=== PATIENT | male | born 1935 | race Caucasian/White ===

== ENCOUNTER 2020-05-22 20:40 | Emergency (ER) | payer OTHER ==
[~2020-05-22] VITALS: Ht 180.3 cm; Wt 74.8 kg
[2020-05-23 00:03] LABS: Basophils # (auto) 0.1 10 ^3/uL (0-0.2); Basophils % (auto) 1.1 % (0.0-2.0); Eosinophils # (auto) 0.3 10 ^3/uL (0-0.8); Eosinophils % (auto) 5.7 % (0.0-7.0); Hematocrit 36.2 % (41.0-53.0); Hemoglobin 11.7 g/dL (13.5-17.5); Lymphocytes % (auto) 37.8 % (10.0-50.0); Mean Corpuscular Hemoglobin 29.3 pg (28.0-32.0); Mean Corpuscular Hgb Conc. 32.2 g/dL (32.0-36.0); Mean Corpuscular Volume 91.1 fL (80.0-100.0); Monocytes # (auto) 0.4 10 ^3/uL (0-1.3); Monocytes % (auto) 7.8 % (0.0-12.0); Neutrophils # (auto) 2.5 10 ^3/uL (1.6-8.6); Neutrophils % (auto) 47.6 % (37.0-80.0); Platelet Count (auto) 234 10^3/uL (140-450); Red Blood Cells 3.98 10^6/uL (4.5-5.90); Red Cell Distribution Width 16.4 % (11.8-14.3); White Blood Cell 5.2 10^3/uL (4.4-10.8)
[2020-05-23 00:23] LABS: Albumin 3.1 g/dL (3.4-5.0); BUN/Creatinine Ratio 11.8; Potassium 3.5 mmol/L (3.5-5.1)
[2020-05-23 00:24] LABS: Salicylate < 1.7 mg/dL (2.8-20.0)
[2020-05-23 00:25] LABS: Bilirubin, Total 0.3 mg/dL (0.2-1.0); Total Protein 6.9 g/dL (6.4-8.2)
[2020-05-23 00:26] LABS: Acetaminophen < 2.0 ug/mL (10-30)
[2020-05-23] MEDS ORDERED: THIAMINE INJ 100 MG in SODIUM CHLORIDE 0.9% 1,000 ML IV ONE (02:00)
[2020-05-23] MEDS ORDERED: THIAMINE 100mg/ml INJ (200mg/2ml VIAL) ONE (02:44)
[2020-05-23 14:11] LABS: Urine Bacteria FEW /hpf (None Seen); Urine Blood Negative /uL (Negative); Urine Specific Gravity 1.012 (1.001-1.035); Urine WBC 32 /hpf (0 - 3)
[2020-05-23 14:14] LABS: Amphetamine Screen, Urine NEGATIVE (NEGATIVE); Barbiturate Scree,Urine NEGATIVE (NEGATIVE); Benzodiazephine Screen, Urine NEGATIVE (NEGATIVE); Cannabinoid Screen, Urine NEGATIVE (NEGATIVE); Cocaine Screen, Urine NEGATIVE (NEGATIVE); Opiate Scree,Urine NEGATIVE (NEGATIVE); Phencyclidine Screen, Urine NEGATIVE (NEGATIVE)
[2020-05-24] MEDS ORDERED: SULFAMETHOX W/TRIMETH(800/160MG) DS TAB PO SCH (10:00)
[2020-05-24 18:11] VITALS: BP 139/62
== END 2020-05-24 18:50 | disposition short-term general hospital (02) ==
LOC: ER 20:40 → EDBD 20:40 → ER 05-24 18:50
DX: R45.851 Suicidal ideations (principal); F10.129 Alcohol abuse with intoxication, unspecified
CPT/HCPCS: 36415; 71046; 80053; 80307; 80320; 80329; 81001; 85025; 87426; 93005; 96365; 96366; 99285; J3411; J7030

== ENCOUNTER 2020-10-18 18:24 | Inpatient (IN) | payer OTHER, MEDICARE ==
[~2020-10-18] VITALS: Ht 175.3 cm; Wt 59.7 kg
[2020-10-18 19:59] LABS: Basophils # (auto) 0.1 10 ^3/uL (0-0.2); Basophils % (auto) 0.8 % (0.0-2.0); Eosinophils # (auto) 0 10 ^3/uL (0-0.8); Eosinophils % (auto) 0.1 % (0.0-7.0); Hematocrit 33.2 % (41.0-53.0); Lymphocytes # (auto) 0.8 10 ^3/uL (0.4-5.4); Lymphocytes % (auto) 11.8 % (10.0-50.0); Mean Corpuscular Hemoglobin 29.3 pg (28.0-32.0); Mean Corpuscular Hgb Conc. 33.2 g/dL (32.0-36.0); Mean Corpuscular Volume 88.2 fL (80.0-100.0); Monocytes # (auto) 0.4 10 ^3/uL (0-1.3); Monocytes % (auto) 5.5 % (0.0-12.0); Neutrophils # (auto) 5.6 10 ^3/uL (1.6-8.6); Neutrophils % (auto) 81.8 % (37.0-80.0); Platelet Count (auto) 242 10^3/uL (140-450); Red Blood Cells 3.76 10^6/uL (4.5-5.90); Red Cell Distribution Width 16.5 % (11.8-14.3); White Blood Cell 6.8 10^3/uL (4.4-10.8)
[2020-10-18 20:15] LABS: Albumin 2.4 g/dL (3.4-5.0); Amylase 63 U/L (25-115); Anion Gap 19 (5-15); Blood Urea Nitrogen 15 mg/dL (7-18); Carbon Dioxide 13 mmol/L (21-32); Chloride 109 mmol/L (98-107); Glucose 59 mg/dL (74-106); Lipase 95 U/L (73-393); Magnesium 1.9 mg/dL (1.6-2.6); Potassium 3.3 mmol/L (3.5-5.1); Sodium 141 mmol/L (136-145)
[2020-10-18 20:20] LABS: INR 1.15 (0.9-1.15); Partial Thromboplastin Time 43.2 sec (23.0-31.2)
[2020-10-18 20:21] LABS: Alanine Aminotransferase 7 U/L (16-61); Alkaline Phosphatase 78 U/L (45-117); Aspartate Aminotransferase 15 U/L (15-37); BUN/Creatinine Ratio 11.6; Bilirubin, Total 0.5 mg/dL (0.2-1.0); GFR African American 68 mL/min; GFR Non-African American 56 mL/min; Total Protein 6.6 g/dL (6.4-8.2)
[2020-10-18] MEDS ORDERED: DexAMETHasone SOD PHOS 10MG/1ML VIAL INJ IV ONE (20:30)
[2020-10-18] MEDS ORDERED: DOXYCYCLINE 100MG/250ML 250 ML IV ONE (22:15)
[2020-10-19 00:33] LABS: Urine Amorphous Crystal MOD /hpf (None Seen); Urine Bacteria MANY /hpf (None Seen); Urine Blood TRACE /uL (Negative); Urine Hyaline Cast FEW /lpf (0 - 2); Urine Mucus FEW (None Seen); Urine Specific Gravity 1.016 (1.001-1.035); Urine WBC 41 /hpf (0 - 3)
[2020-10-19] MEDS ORDERED: ONDANSETRON HCL 4 MG/2 ML VIAL IV PRN (00:45)
[2020-10-19] MEDS ORDERED: NITROGLYCERIN 0.4 MG SL TAB SL PRN (00:45)
[2020-10-19] MEDS ORDERED: POTASSIUM CHL 20 Meq TABLET PO ONE (00:45)
[2020-10-19] MEDS ORDERED: MORPHINE SULF INJ 2 MG/ML SYRINGE 1ML IV PRN (00:45)
[2020-10-19] MEDS ORDERED: TEMAZEPAM 15 MG CAP PO PRN (00:45)
[2020-10-19] MEDS ORDERED: ACETAMINOPHEN 325 MG TAB PO PRN (00:45)
[2020-10-19] MEDS ORDERED: ENOXAPARIN SOD 40 MG/0.4 ML SYRINGE SC SCH (10:00)
[2020-10-19] MEDS ORDERED: FAMOTIDINE 20 MG TAB PO SCH (10:00)
[2020-10-19] MEDS: CHOLECALCIFEROL (VITD3) 2,000 UNIT CAP PO SCH (10:18)
[2020-10-19] MEDS: ASCORBIC ACID 1,000 MG TAB PO SCH (10:18)
[2020-10-19] MEDS: ZINC SULFATE 220mg CAP or TAB PO SCH (10:18)
[2020-10-19] MEDS: FAMOTIDINE 20 MG TAB PO SCH ×2 (10:18→22:15)
[2020-10-19] MEDS: DOXYCYCLINE 100MG/250ML 250 ML IV SCH ×2 (10:18→22:15)
[2020-10-19] MEDS: DexAMETHasone SOD PHOS 10MG/1ML VIAL INJ IV SCH (10:18)
[2020-10-19] MEDS ORDERED: REMDESIVIR PER PHARMACY 0 ML IV SCH (15:00)
[2020-10-19] MEDS ORDERED: ENOXAPARIN SOD 30 MG/0.3 ML SYRINGE SC STA (17:14)
[2020-10-19] MEDS: ENOXAPARIN SOD 60 MG/0.6 ML SYRINGE SC SCH (22:15)
[2020-10-20] VITALS: BP 98/55
[2020-10-20 05:08] LABS: Basophils # (auto) 0 10 ^3/uL (0-0.2); Basophils % (auto) 0.4 % (0.0-2.0); Eosinophils # (auto) 0 10 ^3/uL (0-0.8); Hematocrit 30.5 % (41.0-53.0); Hemoglobin 10.4 g/dL (13.5-17.5); Lymphocytes # (auto) 0.9 10 ^3/uL (0.4-5.4); Lymphocytes % (auto) 12.3 % (10.0-50.0); Mean Corpuscular Hemoglobin 29.7 pg (28.0-32.0); Mean Corpuscular Volume 87.3 fL (80.0-100.0); Monocytes # (auto) 0.3 10 ^3/uL (0-1.3); Monocytes % (auto) 3.9 % (0.0-12.0); Neutrophils # (auto) 5.8 10 ^3/uL (1.6-8.6); Neutrophils % (auto) 83.4 % (37.0-80.0); Nucleated Red Blood Cells % 0.1 %; Platelet Count (auto) 221 10^3/uL (140-450); Red Blood Cells 3.49 10^6/uL (4.5-5.90); Red Cell Distribution Width 16.5 % (11.8-14.3); White Blood Cell 6.9 10^3/uL (4.4-10.8)
[2020-10-20 05:29] LABS: Albumin 2.2 g/dL (3.4-5.0); Calcium 8.1 mg/dL (8.5-10.1); Magnesium 1.8 mg/dL (1.6-2.6); Potassium 3.9 mmol/L (3.5-5.1)
[2020-10-20 05:38] LABS: BUN/Creatinine Ratio 11.5; Bilirubin, Total 0.4 mg/dL (0.2-1.0); CRP High Sensitivity 5.16 mg/dL (< 0.3)
[2020-10-20 08:00] VITALS: BP_SYST 127; BP_SYST 99; BP_DIAS 57; BP_DIAS 79
[2020-10-20] MEDS: DexAMETHasone SOD PHOS 10MG/1ML VIAL INJ IV SCH (10:57)
[2020-10-20] MEDS: ENOXAPARIN SOD 60 MG/0.6 ML SYRINGE SC SCH (10:57)
[2020-10-20] MEDS: ZINC SULFATE 220mg CAP or TAB PO SCH (10:58)
[2020-10-20] MEDS: ASCORBIC ACID 1,000 MG TAB PO SCH (10:58)
[2020-10-20] MEDS: CHOLECALCIFEROL (VITD3) 2,000 UNIT CAP PO SCH (10:58)
[2020-10-20] MEDS: DOXYCYCLINE 100MG/250ML 250 ML IV SCH ×2 (10:59→22:44)
[2020-10-20] MEDS: FAMOTIDINE 20 MG TAB PO SCH ×2 (10:59→22:44)
[2020-10-20] MEDS ORDERED: LEVOTHYROXINE SODIUM 100 MCG TAB PO ONE (11:00)
[2020-10-20] MEDS ORDERED: SODIUM CHLORIDE 0.9% 1,000 ML IV ONE (14:45)
[2020-10-20] MEDS ORDERED: REMDESIVIR 200 MG in NS 210ml LOADING DOSE ADULT IV ONE (15:00)
[2020-10-20 16:00] VITALS: BP 100/58
[2020-10-20] MEDS ORDERED: SODIUM CHLORIDE 0.9% 250 ML IV ONE (16:00)
[2020-10-20] MEDS: ERGOCALCIFEROL 50,000 UNIT(1.25MG) CAP PO SCH (17:08)
[2020-10-20] MEDS: ALBUTEROL SULF HFA 90MCG INH 200DOSE IN PRN (20:49)
[2020-10-20] MEDS: APIXABAN 5 MG TAB PO SCH (22:44)
[2020-10-21] VITALS (7 sets, daily range): BP systolic 100–112; BP diastolic 53–71
[2020-10-21 05:58] LABS: Hematocrit 26.5 % (41.0-53.0); Hemoglobin 9.1 g/dL (13.5-17.5)
[2020-10-21] MEDS: LEVOTHYROXINE SODIUM 100 MCG TAB PO SCH (06:17)
[2020-10-21 06:32] LABS: BUN/Creatinine Ratio 17.9; Calcium 7.7 mg/dL (8.5-10.1); Magnesium 1.6 mg/dL (1.6-2.6); Potassium 4.1 mmol/L (3.5-5.1)
[2020-10-21] MEDS: ALBUTEROL SULF HFA 90MCG INH 200DOSE IN PRN ×2 (07:50→19:11)
[2020-10-21] MEDS: ASCORBIC ACID 1,000 MG TAB PO SCH (10:19)
[2020-10-21] MEDS: DexAMETHasone SOD PHOS 10MG/1ML VIAL INJ IV SCH (10:19)
[2020-10-21] MEDS: ZINC SULFATE 220mg CAP or TAB PO SCH (10:19)
[2020-10-21] MEDS: CHOLECALCIFEROL (VITD3) 2,000 UNIT CAP PO SCH (10:20)
[2020-10-21] MEDS: FAMOTIDINE 20 MG TAB PO SCH (10:20)
[2020-10-21] MEDS: DOXYCYCLINE 100MG/250ML 250 ML IV SCH ×2 (10:20→21:10)
[2020-10-21] MEDS: APIXABAN 5 MG TAB PO SCH ×2 (10:22→21:10)
[2020-10-21] MEDS ORDERED: MAGNESIUM SULFATE 1GM/100ML 100 ML IV ONE (10:45)
[2020-10-21] MEDS ORDERED: LACTULOSE 20Gm/30ML SOLN PO PRN (11:00)
[2020-10-21] MEDS: REMDESIVIR 100mg 100 MG in SODIUM CHL 0.9% 230 ML IV SCH (16:24)
[2020-10-21] MEDS: DOCUSATE SOD 100 MG CAP PO SCH (21:10)
[2020-10-22] MEDS: LEVOTHYROXINE SODIUM 100 MCG TAB PO SCH (06:08)
[2020-10-22 08:00] VITALS: BP 104/55
[2020-10-22 08:07] LABS: Hematocrit 28.7 % (41.0-53.0); Hemoglobin 9.9 g/dL (13.5-17.5)
[2020-10-22 08:19] LABS: BUN/Creatinine Ratio 26.4; Calcium 7.7 mg/dL (8.5-10.1); Potassium 4.5 mmol/L (3.5-5.1)
[2020-10-22] MEDS: DexAMETHasone SOD PHOS 10MG/1ML VIAL INJ IV SCH (09:26)
[2020-10-22] MEDS: ZINC SULFATE 220mg CAP or TAB PO SCH (09:27)
[2020-10-22] MEDS: DOXYCYCLINE 100MG/250ML 250 ML IV SCH (09:27)
[2020-10-22] MEDS: CHOLECALCIFEROL (VITD3) 2,000 UNIT CAP PO SCH (09:28)
[2020-10-22] MEDS: FAMOTIDINE 20 MG TAB PO SCH (09:28)
[2020-10-22] MEDS: ASCORBIC ACID 1,000 MG TAB PO SCH (09:28)
[2020-10-22] MEDS: APIXABAN 5 MG TAB PO SCH ×2 (09:29→21:53)
[2020-10-22] MEDS: DOCUSATE SOD 100 MG CAP PO SCH ×2 (09:29→21:53)
[2020-10-22] MEDS ORDERED: MAGNESIUM SULFATE 1GM/100ML 100 ML IV ONE (12:00)
[2020-10-22] MEDS ORDERED: ZINC220T6 PO (12:02)
[2020-10-22] MEDS ORDERED: ASCO10003 PO (12:02)
[2020-10-22] MEDS ORDERED: ALBUAER3 IN (12:02)
[2020-10-22] MEDS ORDERED: DEX4T PO (12:02)
[2020-10-22] MEDS ORDERED: LEV100T PO (12:02)
[2020-10-22] MEDS ORDERED: PANT40TA2 PO (12:02)
[2020-10-22] MEDS ORDERED: DOXY-286 PO (12:02)
[2020-10-22] MEDS ORDERED: CHOL1CAP47 PO (12:02)
[2020-10-22] MEDS ORDERED: DOCU-94 PO (12:02)
[2020-10-22] MEDS ORDERED: APIX5TAB4 PO (12:02)
[2020-10-22] MEDS ORDERED: LEVO500T31 PO (12:08)
[2020-10-22] MEDS ORDERED: levoFLOXacin 500MG 100 ML IV ONE (12:15)
[2020-10-22] MEDS: REMDESIVIR 100mg 100 MG in SODIUM CHL 0.9% 230 ML IV SCH (15:54)
[2020-10-22 15:57] VITALS: BP 110/57
[2020-10-23] VITALS: BP 128/55
[2020-10-23 05:48] LABS: Basophils # (auto) 0 10 ^3/uL (0-0.2); Basophils % (auto) 0.2 % (0.0-2.0); Eosinophils # (auto) 0 10 ^3/uL (0-0.8); Hematocrit 31.8 % (41.0-53.0); Hemoglobin 10.9 g/dL (13.5-17.5); Lymphocytes # (auto) 1.4 10 ^3/uL (0.4-5.4); Lymphocytes % (auto) 27.8 % (10.0-50.0); Mean Corpuscular Hemoglobin 29.6 pg (28.0-32.0); Mean Corpuscular Hgb Conc. 34.4 g/dL (32.0-36.0); Mean Corpuscular Volume 85.9 fL (80.0-100.0); Monocytes # (auto) 0.5 10 ^3/uL (0-1.3); Monocytes % (auto) 9.5 % (0.0-12.0); Neutrophils # (auto) 3.1 10 ^3/uL (1.6-8.6); Neutrophils % (auto) 62.5 % (37.0-80.0); Nucleated Red Blood Cells % 0.2 %; Platelet Count (auto) 218 10^3/uL (140-450)
[2020-10-23 06:05] LABS: Potassium 4.4 mmol/L (3.5-5.1)
[2020-10-23 06:11] LABS: Albumin 1.9 g/dL (3.4-5.0); BUN/Creatinine Ratio 28.2; Bilirubin, Total 0.4 mg/dL (0.2-1.0); Calcium 7.7 mg/dL (8.5-10.1); Total Protein 5.4 g/dL (6.4-8.2)
[2020-10-23] MEDS: ALBUTEROL SULF HFA 90MCG INH 200DOSE IN PRN ×2 (06:38→18:52)
[2020-10-23] MEDS: LEVOTHYROXINE SODIUM 100 MCG TAB PO SCH (06:43)
[2020-10-23 08:00] VITALS: BP 93/51
[2020-10-23] MEDS: DexAMETHasone SOD PHOS 10MG/1ML VIAL INJ IV SCH (10:05)
[2020-10-23] MEDS: levoFLOXacin 500MG 100 ML IV SCH (10:06)
[2020-10-23] MEDS: FAMOTIDINE 20 MG TAB PO SCH (10:06)
[2020-10-23] MEDS: ZINC SULFATE 220mg CAP or TAB PO SCH (10:06)
[2020-10-23] MEDS: CHOLECALCIFEROL (VITD3) 2,000 UNIT CAP PO SCH (10:06)
[2020-10-23] MEDS: DOCUSATE SOD 100 MG CAP PO SCH ×2 (10:06→22:07)
[2020-10-23] MEDS: APIXABAN 5 MG TAB PO SCH ×2 (10:06→22:07)
[2020-10-23] MEDS: ASCORBIC ACID 1,000 MG TAB PO SCH (10:07)
[2020-10-23 16:00] VITALS: BP 91/54
[2020-10-23] MEDS: REMDESIVIR 100mg 100 MG in SODIUM CHL 0.9% 230 ML IV SCH (16:11)
[2020-10-24] VITALS: BP 104/64
[2020-10-24] MEDS: LEVOTHYROXINE SODIUM 100 MCG TAB PO SCH (06:32)
[2020-10-24 08:00] VITALS: BP 94/43
[2020-10-24] MEDS: CHOLECALCIFEROL (VITD3) 2,000 UNIT CAP PO SCH (10:00)
[2020-10-24] MEDS: DOCUSATE SOD 100 MG CAP PO SCH ×2 (10:11→21:35)
[2020-10-24] MEDS: APIXABAN 5 MG TAB PO SCH ×2 (10:11→21:35)
[2020-10-24] MEDS: ZINC SULFATE 220mg CAP or TAB PO SCH (10:11)
[2020-10-24] MEDS: DexAMETHasone SOD PHOS 10MG/1ML VIAL INJ IV SCH (10:11)
[2020-10-24] MEDS: levoFLOXacin 500MG 100 ML IV SCH (10:11)
[2020-10-24] MEDS: FAMOTIDINE 20 MG TAB PO SCH (10:12)
[2020-10-24] MEDS: ASCORBIC ACID 1,000 MG TAB PO SCH (10:13)
[2020-10-24] MEDS: REMDESIVIR 100mg 100 MG in SODIUM CHL 0.9% 230 ML IV SCH (14:21)
[2020-10-24 16:00] VITALS: BP 101/50
[2020-10-24] MEDS: LACTULOSE 20Gm/30ML SOLN PO SCH (18:00)
[2020-10-24] MEDS: ALBUTEROL SULF HFA 90MCG INH 200DOSE IN PRN (19:03)
[2020-10-25] VITALS: BP 98/53
[2020-10-25] MEDS: LEVOTHYROXINE SODIUM 100 MCG TAB PO SCH (06:41)
[2020-10-25] MEDS: ALBUTEROL SULF HFA 90MCG INH 200DOSE IN PRN ×2 (07:00→19:26)
[2020-10-25 07:47] LABS: Basophils # (auto) 0 10 ^3/uL (0-0.2); Basophils % (auto) 0.1 % (0.0-2.0); Eosinophils # (auto) 0 10 ^3/uL (0-0.8); Hematocrit 30.9 % (41.0-53.0); Hemoglobin 10.5 g/dL (13.5-17.5); Lymphocytes # (auto) 1.4 10 ^3/uL (0.4-5.4); Lymphocytes % (auto) 27.9 % (10.0-50.0); Mean Corpuscular Hemoglobin 29.2 pg (28.0-32.0); Monocytes # (auto) 0.4 10 ^3/uL (0-1.3); Monocytes % (auto) 8.7 % (0.0-12.0); Neutrophils # (auto) 3.1 10 ^3/uL (1.6-8.6); Neutrophils % (auto) 63.3 % (37.0-80.0); Nucleated Red Blood Cells % 0.2 %; Platelet Count (auto) 212 10^3/uL (140-450); Red Blood Cells 3.59 10^6/uL (4.5-5.90); Red Cell Distribution Width 17.3 % (11.8-14.3); White Blood Cell 4.9 10^3/uL (4.4-10.8)
[2020-10-25 08:00] VITALS: BP 92/54
[2020-10-25] MEDS: LACTULOSE 20Gm/30ML SOLN PO SCH ×2 (08:00→17:59)
[2020-10-25 08:20] LABS: Albumin 1.8 g/dL (3.4-5.0); Potassium 4.3 mmol/L (3.5-5.1)
[2020-10-25 08:26] LABS: Bilirubin, Total 0.4 mg/dL (0.2-1.0); Total Protein 4.9 g/dL (6.4-8.2)
[2020-10-25] MEDS: ASCORBIC ACID 1,000 MG TAB PO SCH (10:00)
[2020-10-25] MEDS: DexAMETHasone SOD PHOS 10MG/1ML VIAL INJ IV SCH (10:03)
[2020-10-25] MEDS: levoFLOXacin 500MG 100 ML IV SCH (10:03)
[2020-10-25] MEDS: ZINC SULFATE 220mg CAP or TAB PO SCH (10:03)
[2020-10-25] MEDS: CHOLECALCIFEROL (VITD3) 2,000 UNIT CAP PO SCH (10:04)
[2020-10-25] MEDS: FAMOTIDINE 20 MG TAB PO SCH (10:04)
[2020-10-25] MEDS: APIXABAN 5 MG TAB PO SCH ×2 (10:04→21:40)
[2020-10-25] MEDS: DOCUSATE SOD 100 MG CAP PO SCH ×2 (10:04→21:40)
[2020-10-25] MEDS ORDERED: APIX5TAB4 PO (13:37)
[2020-10-25] MEDS ORDERED: LEVO500T31 PO (13:37)
[2020-10-25 16:00] VITALS: BP 98/54
[2020-10-26] VITALS: BP 99/57
[2020-10-26] MEDS: LEVOTHYROXINE SODIUM 100 MCG TAB PO SCH (06:33)
[2020-10-26] MEDS: LACTULOSE 20Gm/30ML SOLN PO SCH ×2 (08:00→18:00)
[2020-10-26 08:11] VITALS: BP 102/55
[2020-10-26] MEDS: DexAMETHasone SOD PHOS 10MG/1ML VIAL INJ IV SCH (10:48)
[2020-10-26] MEDS: levoFLOXacin 500MG 100 ML IV SCH (10:48)
[2020-10-26] MEDS: DOCUSATE SOD 100 MG CAP PO SCH ×2 (10:49→21:26)
[2020-10-26] MEDS: ZINC SULFATE 220mg CAP or TAB PO SCH (10:49)
[2020-10-26] MEDS: APIXABAN 5 MG TAB PO SCH ×2 (10:49→21:26)
[2020-10-26] MEDS: CHOLECALCIFEROL (VITD3) 2,000 UNIT CAP PO SCH (10:50)
[2020-10-26] MEDS: FAMOTIDINE 20 MG TAB PO SCH (10:50)
[2020-10-26] MEDS: ASCORBIC ACID 1,000 MG TAB PO SCH (10:50)
[2020-10-26 16:00] VITALS: BP 97/53
[2020-10-26] MEDS: ERGOCALCIFEROL 50,000 UNIT(1.25MG) CAP PO SCH (18:26)
[2020-10-26] MEDS: ALBUTEROL SULF HFA 90MCG INH 200DOSE IN PRN (20:10)
[2020-10-27] VITALS: BP 86/51
[2020-10-27 05:40] LABS: Bilirubin, Direct 0.2 mg/dL (0-0.2)
[2020-10-27 05:48] LABS: Albumin 1.8 g/dL (3.4-5.0); Bilirubin, Total 0.4 mg/dL (0.2-1.0); Total Protein 4.6 g/dL (6.4-8.2)
[2020-10-27] MEDS: LEVOTHYROXINE SODIUM 100 MCG TAB PO SCH (06:37)
[2020-10-27] MEDS: ALBUTEROL SULF HFA 90MCG INH 200DOSE IN PRN (07:32)
[2020-10-27 08:00] VITALS: BP 105/59
[2020-10-27] MEDS: LACTULOSE 20Gm/30ML SOLN PO SCH (09:15)
[2020-10-27] MEDS: levoFLOXacin 500MG 100 ML IV SCH (09:15)
[2020-10-27] MEDS: DexAMETHasone SOD PHOS 10MG/1ML VIAL INJ IV SCH (09:15)
[2020-10-27] MEDS: APIXABAN 5 MG TAB PO SCH (09:16)
[2020-10-27] MEDS: FAMOTIDINE 20 MG TAB PO SCH (09:16)
[2020-10-27] MEDS: DOCUSATE SOD 100 MG CAP PO SCH (09:16)
[2020-10-27] MEDS: CHOLECALCIFEROL (VITD3) 2,000 UNIT CAP PO SCH (09:16)
[2020-10-27] MEDS: ASCORBIC ACID 1,000 MG TAB PO SCH (09:16)
[2020-10-27] MEDS: ZINC SULFATE 220mg CAP or TAB PO SCH (09:16)
[2020-10-27] MEDS: ERGOCALCIFEROL 50,000 UNIT(1.25MG) CAP PO SCH (15:18)
[2020-10-27 16:00] VITALS: BP 99/60
[2020-10-27] MEDS ORDERED: APIXABAN 5 MG TAB PO SCH (22:00)
== END 2020-10-27 18:16 | DRG 871 ==
LOC: ER 18:24 → EDBD 18:24 → TELE 18:25 → TELE-WESTW 10-19 19:40
PROVIDERS: ADMIT Nurse Practitioner; ATTEND Internal Medicine
PROC: XW033E5 Introduction of Remdesivir Anti-infective into Peripheral Vein, Percutaneous Approach, New Technology Group 5 (ICD-10-PCS; principal; 2020-10-18)
PROC: XW13325 Transfusion of Convalescent Plasma (Nonautologous) into Peripheral Vein, Percutaneous Approach, New Technology Group 5 (ICD-10-PCS; 2020-10-18)
DX: A41.89 Other specified sepsis (principal); J12.82 Pneumonia due to coronavirus disease 2019; U07.1 COVID-19; N17.0 Acute kidney failure with tubular necrosis; E44.0 Moderate protein-calorie malnutrition; N39.0 Urinary tract infection, site not specified; Z68.1 Body mass index [BMI] 19.9 or less, adult; B96.1 Klebsiella pneumoniae [K. pneumoniae] as the cause of diseases classified elsewhere; D64.9 Anemia, unspecified; E03.9 Hypothyroidism, unspecified; E55.9 Vitamin D deficiency, unspecified; E87.6 Hypokalemia; K21.9 Gastro-esophageal reflux disease without esophagitis; K80.20 Calculus of gallbladder without cholecystitis without obstruction; N27.1 Small kidney, bilateral; E88.09 Other disorders of plasma-protein metabolism, not elsewhere classified; N40.0 Benign prostatic hyperplasia without lower urinary tract symptoms; I95.9 Hypotension, unspecified; Z89.512 Acquired absence of left leg below knee; Z89.612 Acquired absence of left leg above knee; Z79.899 Other long term (current) drug therapy; Z79.891 Long term (current) use of opiate analgesic; Z79.01 Long term (current) use of anticoagulants
CPT/HCPCS: 36415; 71045; 71250; 74176; 80048; 80053; 80061; 80076; 80320; 81001; 82140; 82150; 82306; 82728; 83605; 83615; 83690; 83735; 84443; 84484; 85014; 85018; 85025; 85379; 85610; 85730; 86141; 86850; 86900; 86901; 87040; 87081; 87086; 87088; 87186; 87426; 92610; 93005; 93970; 94640; 97163; G0378; J1100; J1956; J3490

== ENCOUNTER 2021-01-07 17:26 | Emergency (ER) | payer MEDICARE, OTHER ==
[~2021-01-07] VITALS: Ht 180.3 cm; Wt 59.0 kg
[~2021-01-07 17:26] MED LIST: ALBUAER3 IN; APIX5TAB4 PO; ASCO10003 PO; CHOL1CAP47 PO; DEX4T PO; DOCU-94 PO; LEV100T PO; LEVO500T31 PO; PANT40TA2 PO; ZINC220T6 PO
[2021-01-07] MEDS ORDERED: MORPHINE SULFATE INJECTION 2 MG/ML SYRG IV PRN ×3 (18:00→23:15)
[2021-01-07] MEDS ORDERED: NITROGLYCERIN 0.4 MG SL TAB SL PRN ×2 (18:00→23:15)
[2021-01-07] MEDS ORDERED: ENOXAPARIN SOD 100 MG/1 ML SYRINGE SC ONE ×2 (18:00→18:15)
[2021-01-07] MEDS ORDERED: APIXABAN 5 MG TAB PO ONE (18:15)
[2021-01-07 18:51] LABS: Basophils # (auto) 0.1 10 ^3/uL (0-0.2); Basophils % (auto) 0.8 % (0.0-2.0); Eosinophils # (auto) 0.4 10 ^3/uL (0-0.8); Eosinophils % (auto) 6.1 % (0.0-7.0); Hematocrit 31.3 % (41.0-53.0); Hemoglobin 10.7 g/dL (13.5-17.5); Lymphocytes # (auto) 1.8 10 ^3/uL (0.4-5.4); Lymphocytes % (auto) 25.8 % (10.0-50.0); Mean Corpuscular Hemoglobin 29.1 pg (28.0-32.0); Mean Corpuscular Hgb Conc. 34.3 g/dL (32.0-36.0); Mean Corpuscular Volume 84.8 fL (80.0-100.0); Monocytes # (auto) 0.7 10 ^3/uL (0-1.3); Monocytes % (auto) 9.9 % (0.0-12.0); Neutrophils % (auto) 57.4 % (37.0-80.0); Red Blood Cells 3.69 10^6/uL (4.5-5.90); Red Cell Distribution Width 14.9 % (11.8-14.3); White Blood Cell 6.9 10^3/uL (4.4-10.8)
[2021-01-07 19:02] LABS: Albumin 2.7 g/dL (3.4-5.0); Anion Gap 10 (5-15); Blood Urea Nitrogen 28 mg/dL (7-18); Calcium 8.8 mg/dL (8.5-10.1); Carbon Dioxide 21 mmol/L (21-32); Chloride 104 mmol/L (98-107); Glucose 92 mg/dL (74-106); Magnesium 2.3 mg/dL (1.6-2.6); Potassium 3.8 mmol/L (3.5-5.1); Sodium 135 mmol/L (136-145)
[2021-01-07 19:08] LABS: Alanine Aminotransferase 10 U/L (16-61); Alkaline Phosphatase 79 U/L (45-117); Aspartate Aminotransferase 9 U/L (15-37); BUN/Creatinine Ratio 26.7; Bilirubin, Total 0.2 mg/dL (0.2-1.0); GFR African American 86 mL/min; GFR Non-African American 71 mL/min; Total Protein 6.9 g/dL (6.4-8.2)
[2021-01-07] MEDS ORDERED: ALBUAER3 IN (19:21)
[2021-01-07] MEDS ORDERED: ERGO1CAP12 PO (19:22)
[2021-01-07] MEDS ORDERED: ASCO-22 PO (19:22)
[2021-01-07] MEDS ORDERED: DOCU-94 PO (19:24)
[2021-01-07] MEDS ORDERED: MULT-1056 PO (19:25)
[2021-01-07] MEDS ORDERED: CRAN450T PO (19:25)
[2021-01-07] MEDS ORDERED: LACTCAP35 PO (19:26)
[2021-01-07 19:42] LABS: Urine Amorphous Crystal FEW /hpf (None Seen); Urine Bacteria MOD /hpf (None Seen); Urine Blood Negative /uL (Negative); Urine Mucus FEW (None Seen); Urine Specific Gravity 1.013 (1.001-1.035); Urine WBC 35 /hpf (0 - 3); Urine WBC Clumps PRESENT /hpf (None Seen)
[2021-01-07] MEDS ORDERED: DexAMETHasone SOD PHOS 10MG/1ML VIAL INJ IV ONE (22:45)
[2021-01-07] MEDS ORDERED: cefTRIAXone 1GM/50ML D5W 50 ML IV ONE (22:45)
[2021-01-07] MEDS ORDERED: ZINC SULFATE 220mg CAP or TAB PO ONE (22:45)
[2021-01-07] MEDS ORDERED: ASCORBIC ACID 500 MG TAB PO ONE (22:45)
[2021-01-07] MEDS ORDERED: DOXYCYCLINE 100MG/250ML 250 ML IV ONE (22:45)
[2021-01-07] MEDS ORDERED: HYDROcodone-ACET 5/325MG TAB PO PRN (23:15)
[2021-01-07] MEDS ORDERED: VANCOMYCIN PER PHARMACY 0 MG IV SCH (23:15)
[2021-01-07] MEDS ORDERED: DOCUSATE SOD 100 MG CAP PO PRN (23:15)
[2021-01-07] MEDS ORDERED: SODIUM CHLORIDE 0.9% 1,000 ML IV SCH (23:15)
[2021-01-07] MEDS ORDERED: LORazepam 0.5 MG TAB PO PRN (23:15)
[2021-01-07] MEDS ORDERED: ONDANSETRON HCL 4 MG/2 ML VIAL IV PRN (23:15)
[2021-01-07] MEDS ORDERED: ALUM & MAG HYDROX-SIMETH LIQ(MAALOX) 30 ML PO PRN (23:15)
[2021-01-07] MEDS ORDERED: ACETAMINOPHEN 325 MG TAB PO PRN (23:15)
[2021-01-07] MEDS ORDERED: VANCOMYCIN 1GM/250ML 250 ML IV ONE (23:30)
[2021-01-07] MEDS ORDERED: MEROPENEM 1GM IVPB 100 ML IV ONE (23:30)
[2021-01-07] MEDS ORDERED: IPRATROPIUM BROM 0.5 MG/2.5ML INH SOL NEB ONE (23:30)
[2021-01-07 23:38] VITALS: BP 96/62
[2021-01-08] MEDS ORDERED: IPRATROPIUM BROM 0.5 MG/2.5ML INH SOL NEB SCH (02:00)
[2021-01-08] MEDS ORDERED: MEROPENEM 1GM IVPB 100 ML IV SCH (06:00)
[2021-01-08] MEDS ORDERED: LEVOTHYROXINE SODIUM 100 MCG TAB PO SCH (07:00)
[2021-01-08] MEDS ORDERED: FAMOTIDINE (10MG/ML) 2ML VL IV SCH (10:00)
[2021-01-08] MEDS ORDERED: ASCORBIC ACID 500 MG TAB PO SCH (10:00)
[2021-01-08] MEDS ORDERED: FLORASTOR (S. BOULARDII) 250 MG CAP PO SCH (10:00)
[2021-01-08] MEDS ORDERED: CHOLECALCIFEROL (VITD3) 2,000 UNIT CAP/TAB PO SCH (10:00)
[2021-01-08] MEDS ORDERED: APIXABAN 5 MG TAB PO SCH (10:00)
[2021-01-08] MEDS ORDERED: HYDROGEL 60 GRAM GEL TOP SCH (10:00)
[2021-01-08] MEDS ORDERED: MULTIPLE VITAMINS W/ MINERALS TAB PO SCH (10:00)
== END 2021-01-07 23:56 | disposition designated cancer center or children's hospital (05) ==
LOC: EDBD 17:26 → ER 17:26 → UNDOADMIN 17:57 → TELE 17:57 → ER 23:56
DX: R79.89 Other specified abnormal findings of blood chemistry (principal); I82.401 Acute embolism and thrombosis of unspecified deep veins of right lower extremity; I26.99 Other pulmonary embolism without acute cor pulmonale; Z20.822 Contact with and (suspected) exposure to COVID-19
CPT/HCPCS: 36415; 71275; 80053; 81001; 83036; 83605; 83735; 84484; 85025; 87040; 87426; 93005; 93971; 96365; 96366; 96368; 96372; 96375; 99285; J0696; J1100; J1650; J3490; 87086

== ENCOUNTER 2022-07-20 14:14 | Emergency (ER) | payer MEDICARE, OTHER ==
[~2022-07-20] VITALS: Ht 180.3 cm; Wt 66.0 kg
[~2022-07-20 14:14] MED LIST changes: +ASCO-22 PO; -ASCO10003 PO; +CRAN450T PO; -DEX4T PO; +ERGO1CAP12 PO; +LACTCAP35 PO; -LEVO500T31 PO; +MULT-1056 PO; -ZINC220T6 PO
[2022-07-20] MEDS ORDERED: SODIUM CHLORIDE 0.9% 500 ML IVB ONE (14:30)
[2022-07-20 15:30] LABS: Basophils # (auto) 0 10 ^3/uL (0-0.2); Eosinophils # (auto) 0 10 ^3/uL (0-0.8)
[2022-07-20 15:33] LABS: Basophils % (auto) 0.2 % (0.0-2.0); Hematocrit 36.7 % (41.0-53.0); Hemoglobin 11.7 g/dL (13.5-17.5); Lymphocytes # (auto) 0.8 10 ^3/uL (0.4-5.4); Lymphocytes % (auto) 7.5 % (10.0-50.0); Mean Corpuscular Hemoglobin 25.4 pg (28.0-32.0); Mean Corpuscular Hgb Conc. 31.8 g/dL (32.0-36.0); Mean Corpuscular Volume 80.1 fL (80.0-100.0); Monocytes # (auto) 0.7 10 ^3/uL (0-1.3); Monocytes % (auto) 6.5 % (0.0-12.0); Neutrophils # (auto) 9.6 10 ^3/uL (1.6-8.6); Neutrophils % (auto) 85.8 % (37.0-80.0); Red Blood Cells 4.59 10^6/uL (4.5-5.90); Red Cell Distribution Width 15.1 % (11.8-14.3); White Blood Cell 11.2 10^3/uL (4.4-10.8)
[2022-07-20 15:47] LABS: INR 1.06 (0.9-1.15); Partial Thromboplastin Time 35.3 sec (24.6-33.4)
[2022-07-20 15:56] LABS: Albumin 3.3 g/dL (3.4-5.0); BUN/Creatinine Ratio 17.5; Calcium 8.4 mg/dL (8.5-10.1); Magnesium 2.1 mg/dL (1.6-2.6); Potassium 4.7 mmol/L (3.5-5.1)
[2022-07-20 15:59] LABS: Bilirubin, Total 0.4 mg/dL (0.2-1.0); Total Protein 6.8 g/dL (6.4-8.2)
[2022-07-20] MEDS ORDERED: PANTOPRAZOLE 40 MG/10 ML VIAL INJ IV ONE (17:15)
[2022-07-20 22:23] VITALS: BP 139/80
== END 2022-07-20 23:21 | disposition short-term general hospital (02) ==
LOC: EDBD 14:14 → ER 14:14
DX: K92.2 Gastrointestinal hemorrhage, unspecified (principal); N18.9 Chronic kidney disease, unspecified; K21.9 Gastro-esophageal reflux disease without esophagitis; E78.5 Hyperlipidemia, unspecified; Z86.73 Personal history of transient ischemic attack (TIA), and cerebral infarction without residual deficits; Z79.899 Other long term (current) drug therapy; Z20.822 Contact with and (suspected) exposure to COVID-19
CPT/HCPCS: 36415; 74176; 80053; 82150; 83690; 83735; 85025; 85610; 85730; 86850; 86900; 86901; 87426; 96374; 99285; C9113; J7040

== ENCOUNTER 2022-11-01 16:56 | Emergency (ER) | payer OTHER, MEDICAID ==
[~2022-11-01] VITALS: Ht 177.8 cm; Wt 68.0 kg
[2022-11-01 19:06] LABS: Urine Bacteria MOD /hpf (None Seen); Urine Blood TRACE /uL (Negative); Urine Hyaline Cast MOD /lpf (0 - 2); Urine Mucus FEW (None Seen); Urine Specific Gravity 1.014 (1.001-1.035); Urine WBC 111 /hpf (0 - 3)
[2022-11-01 19:59] LABS: Mean Corpuscular Hemoglobin 25.4 pg (28.0-32.0); Nucleated Red Blood Cells % 0.1 %
[2022-11-01 20:06] LABS: Basophils # (auto) 0.1 10 ^3/uL (0-0.2); Basophils % (auto) 0.6 % (0.0-2.0); Eosinophils # (auto) 0 10 ^3/uL (0-0.8); Eosinophils % (auto) 0.2 % (0.0-7.0); Hematocrit 31.8 % (41.0-53.0); Hemoglobin 10.1 g/dL (13.5-17.5); Lymphocytes # (auto) 1.5 10 ^3/uL (0.4-5.4); Lymphocytes % (auto) 7.6 % (10.0-50.0); Mean Corpuscular Hgb Conc. 31.8 g/dL (32.0-36.0); Mean Corpuscular Volume 79.8 fL (80.0-100.0); Monocytes # (auto) 1.2 10 ^3/uL (0-1.3); Monocytes % (auto) 5.9 % (0.0-12.0); Neutrophils # (auto) 17.2 10 ^3/uL (1.6-8.6); Neutrophils % (auto) 85.7 % (37.0-80.0); Red Blood Cells 3.98 10^6/uL (4.5-5.90); Red Cell Distribution Width 16.3 % (11.8-14.3)
[2022-11-01 20:14] LABS: BUN/Creatinine Ratio 26.8; Potassium 4.1 mmol/L (3.5-5.1)
[2022-11-01 20:17] LABS: Bilirubin, Total 0.4 mg/dL (0.2-1.0); Total Protein 6.7 g/dL (6.4-8.2)
[2022-11-01] MEDS ORDERED: SODIUM CHLORIDE 0.9% 1,000 ML IV ONE ×2 (20:30)
[2022-11-01 22:23] LABS: INR 1.08 (0.9-1.15); Partial Thromboplastin Time 34.7 sec (24.6-33.4)
[2022-11-02 05:50] VITALS: BP 114/56
== END 2022-11-02 07:41 | disposition short-term general hospital (02) ==
LOC: ER 16:56 → EDBD 16:56 → ER 11-02 07:41
DX: A41.89 Other specified sepsis (principal); N39.0 Urinary tract infection, site not specified; N18.9 Chronic kidney disease, unspecified; K21.9 Gastro-esophageal reflux disease without esophagitis; E78.5 Hyperlipidemia, unspecified; R07.89 Other chest pain; Z79.899 Other long term (current) drug therapy; Z20.822 Contact with and (suspected) exposure to COVID-19
CPT/HCPCS: 36415; 71045; 74176; 80053; 81001; 83605; 83690; 84484; 85025; 85610; 85730; 87086; 87088; 87186; 87426; 96360; 96361; 99285; J7030